=== PATIENT | female | born 1950 | race Caucasian/White ===

== ENCOUNTER 2016-10-08 14:10 | Emergency (ER) | payer OTHER ==
--- NOTE | ~2016-10-08 | EKG ---
PATIENT: YUSRA ENGLE UNIT #: [id number] Ventricular Rate: 60 BPM Atrial Rate: 60 BPM P-R Interval: 164 ms QRS Duration: 86 ms Q-T Interval: 408 ms QTC Calculation(Bezet): 408 ms P [place]: 50 degrees Calculated R [place]: 23 degrees Calculated T [place]: 81 degrees Diagnosis Line: Normal sinus rhythm Diagnosis Line: Normal ECG Diagnosis Line: When compared with ECG of 31-AUG-2012 19:21, Diagnosis Line: No significant change was found Diagnosis Line: Confirmed by LUDIN PRUITT MD ([id number]) on 10/09/2016 Diagnosis Line: 7:03:57 AM INTERPRETING MD: EDMOND BLANC
--- NOTE | ~2016-10-08 | CR72 ---
[facility] A Service of [facility] & [facility] RADIOLOGY TEXT RESULTS PATIENT: YUSRA ENGLE LOCATION: CFTX : 46 UNIT #: [id number] AGE: [address]: Yohannes Mcqueen MD SEX: F ORDER DR: [id number] [facility] [address] [place], [place] [address] [id number] E MR#: [id number] Acc #: [id number] NAME: YUSRA ENGLE. : 1950 SEX: F STUDY DATE/TIME: 10/08/2016 13:55 UNIT: [facility] ROOM: STUDY DESCRIPTION: CR Chest Single View Portable Attending Physician: Yohannes Mcqueen M.D. Ordering Physician: Yohannes Mcqueen M.D. Primary Care Physician: [facility] MEDICAL IMAGING REPORT This report is preliminary unless electronic signature is present EXAM AP portable chest, 10/08/2016 HISTORY 66-year-old female in the ED complaining of shortness of air and dizziness beginning last evening. High blood pressure. TECHNIQUE AP portable upright chest x-ray. FINDINGS Heart size and pulmonary vascularity are within normal limits. The lungs are expanded and clear. No visible pleural effusion. No change since 08/28/2015. IMPRESSION No active disease. No change since 08/28/2015. Dictated by... Beau Hughes M.D. THIS IS AN ELECTRONICALLY VERIFIED REPORT Beau Hughes M.D. at 10/09/2016 8:40 AM ADEN/patricia TD: 10/08/2016 21:19 JOB #: [id number] MEDICAL IMAGING REPORT COPY
[2016-10-08 14:02] LABS: URINE SOURCE CLEAN CATCH
[2016-10-08 14:06] LABS: BASOPHIL# 0.3 X10e3 (0-0.3); BASOPHIL% 2.9 % (0-2.5); EOSINOPHIL# 0.2 X10e3 (0-0.7); EOSINOPHIL% 2.1 % (0.0-7.0); HEMATOCRIT 39.7 % (35.0-45.0); HEMOGLOBIN 13.3 gm/dL (12.0-16.0); LYMPHOCYTE# 1.8 X10e3 (1.0-3.5); LYMPHOCYTE% 20.2 % (17.0-45.0); MEAN CELL VOLUME 82.1 FL (83-96); MEAN CORPUSCULAR HEMOGLOBIN 27.6 PG (28-34); MEAN CORPUSCULAR HGB CONC 33.6 g/dL (30-36); MEAN PLATELET VOLUME 9.6 FL (6.5-11.5); MONOCYTE# 0.4 X10e3 (0-1.0); MONOCYTE% 5.1 % (3.0-12.0); NEUTROPHIL# 6.2 X10e3 (1.5-7.1); NEUTROPHIL% 69.7 % (40-75); PLATELET COUNT 213 X10e3 (140-420); RED BLOOD COUNT 4.83 X10e (3.90-5.30); RED CELL DISTRIBUTION WIDTH 13.8 % (11.0-15.5); WHITE BLOOD COUNT 8.8 X10e3 (4.0-10.5)
[2016-10-08 14:10] LABS: URINE APPEARANCE CLEAR; URINE BILIRUBIN NEG (NEG); URINE BLOOD NEG (NEG); URINE COLOR YELLOW; URINE GLUCOSE >1000 MG/DL (NEG); URINE KETONE NEG (NEG); URINE LEUKOCYTE ESTERASE NEG (NEG); URINE NITRATE NEG (NEG); URINE PROTEIN NEG (NEG); URINE UROBILINOGEN 0.2 MG/DL (NEG)
[~2016-10-08 14:10] MED LIST: AMARYL PO; ASPIRIN ENTERI325 M1 PO; ASPIRIN PO; AVANDAMET PO; CLONIDINE HCL0.1 MG PO; COREG3.125 MG PO; CRESTOR PO; DARVOCET-N 1001 TAB PO; FLEXERIL PO; GLUCOPHAGE500 M1 PO; HYDROCHLOROTHIA25 MG PO; JANUMET 50-1,1 UDTAB PO; JANUVIA PO; LEXAPRO PO; LIPITOR40 MG PO; LISINOPRIL PO; LISINOPRIL20 MG PO; LODINE PO; LOPID600 MG PO; NORVASC PO; NORVASC10 MG PO; PRAVACHOL20 MG PO; VICODIN 5/500 T1 TAB PO; ZESTORETIC PO; ZESTRIL40 MG PO
[2016-10-08 14:11] LABS: POC - CKMB 3.5 ng/mL (0.0-7.9); POC - TROPONIN <0.05 ng/mL (<=0.05)
[2016-10-08 14:14] LABS: DIFF IND NO
[2016-10-08 14:15] LABS: CULTURE INDICATED? NO
[2016-10-08 14:39] LABS: INFLUENZA A POS (NEG); INFLUENZA B NEG (NEG)
[2016-10-08 15:03] LABS: ALBUMIN SERUM 4.6 g/dL (3.5-5.0); ALKALINE PHOSPHATASE 81 U/L (32-92); ALT (SGPT) 30 U/L (10-40); AST (SGOT) 21 U/L (10-42); BILIRUBIN, DIRECT 0.1 mg/dL (0.0-0.2); BILIRUBIN,INDIRECT 1.2 mg/dL (0.0-0.9); BILIRUBIN,TOTAL 1.3 mg/dL (0.2-2.0); BLOOD UREA NITROGEN 17 mg/dL (9-23); BUN/CREATININE RATIO 21.25; CARBON DIOXIDE 29 mmol/L (22-31); CHLORIDE 98 mmol/L (100-111); CREATININE SERUM 0.8 mg/dL (0.6-1.4); GLOM FILT RATE Estimated ABOVE60 mL/min (>60); GLUCOSE FASTING 245 mg/dL (70-110); POTASSIUM 3.1 mmol/L (3.5-5.1); PROTEIN TOTAL SERUM 7.4 g/dL (6.0-8.3); SODIUM 138 mmol/L (135-145)
[2016-10-08 15:52] LABS: POC - CKMB 2.8 ng/mL (0.0-7.9); POC - TROPONIN <0.05 ng/mL (<=0.05)
== END 2016-10-08 16:10 | disposition home or self-care (01) ==
LOC: CFTX 14:10
PROVIDERS: Emergency Medicine
DX: J11.1 Influenza due to unidentified influenza virus with other respiratory manifestations (principal); R42 Dizziness and giddiness; I10 Essential (primary) hypertension; E11.9 Type 2 diabetes mellitus without complications
CPT/HCPCS: 36415; 71010; 80048; 80076; 81003; 82553; 82947; 83880; 84484; 85025; 87651; 87804; 87880; 93005; 96360; 99284